=== PATIENT | female | born 1980 | race Caucasian/White ===

== ENCOUNTER → 2017-04-08 | Outpatient (CLI) | payer OTHER | LOC: FIMAGING 13:11 | PROVIDERS: ATTEND Physician Assistant Medical | DX: N83.202 Unspecified ovarian cyst, left side (principal); N93.9 Abnormal uterine and vaginal bleeding, unspecified ==

== ENCOUNTER → 2017-10-15 | Outpatient (CLI) | payer OTHER ==
[~2017-10-15] MED LIST: IOPAMIDOL (ISOVUE-300) 100 ML BTL ONE
== END ==
LOC: FIMAGING 15:47
PROVIDERS: ATTEND Plastic Surgery
DX: S09.8XXA Other specified injuries of head, initial encounter (principal)
CPT/HCPCS: Q9967

== ENCOUNTER → 2018-04-23 | Outpatient (CLI) | payer OTHER | LOC: FIMAGING 13:28 | PROVIDERS: ATTEND Family Medicine | DX: M79.89 Other specified soft tissue disorders (principal) ==

== ENCOUNTER → 2018-10-13 | Outpatient (CLI) | payer OTHER | LOC: FIMAGING 14:54 | PROVIDERS: ATTEND Nurse Practitioner Women's Health | DX: N60.02 Solitary cyst of left breast (principal) ==

== ENCOUNTER 2019-04-05 19:36 | Emergency (ER) | payer OTHER ==
--- NOTE | 2019-04-05 19:44 | EDPHY ---
H & P Stated Complaint: R SIDE JONES X3W, SLURRED SPEECH NOW RESOLVED Time Seen by Provider: 04/05/19 19:44 HPI/ROS: CHIEF COMPLAINT: Right retro-orbital headache, slurred speech, facial numbness HISTORY OF PRESENT ILLNESS: The patient has had a several week history of bitemporal headache. She saw her primary care provider earlier in the week who ordered a sed rate. She presents the emergency department tonight after she developed some slurred speech and right facial numbness. The patient reports the symptoms have resolved with a were concerning. She has no prior history of migraine headaches. The patient denies any history of fall or trauma. The patient does complain of some posterior cervical spine pain predominantly on the right side. She denies any history of chiropractic manipulation or recent fall or trauma. The patient denies fever, cough or congestion. She has no history of a recent illness. REVIEW OF SYSTEMS: A comprehensive 10 point review of systems is otherwise negative aside from elements mentioned in the history of present illness. Source: Patient - Personal History LMP (Females 10-55): 1-7 Days Ago Current Tetanus/Diphtheria Vaccine: Yes - Medical/Surgical History Hx Asthma: No Hx Chronic Respiratory Disease: No Hx Diabetes: No Hx Cardiac Disease: No Hx Renal Disease: No Hx Cirrhosis: No Hx Alcoholism: No Hx HIV/AIDS: No Hx Splenectomy or Spleen Trauma: No Other PMH: anxiety, bilateral inguinal hernia repair - Social History Smoking Status: Never smoked - Physical Exam Exam: General Appearance: Alert, no distress Eyes: Pupils equal and round no pallor or injection ENT, Mouth: Mucous membranes moist Respiratory: There are no retractions, lungs are clear to auscultation Cardiovascular: Regular rate and rhythm Gastrointestinal: Abdomen is soft and nontender, no masses, bowel sounds normal Neurological: A&O, normal motor function, normal sensory exam, normal cranial nerves Skin: Warm and dry, no rashes Musculoskeletal: Neck is supple nontender Extremities: symmetrical, full range of motion Psychiatric: Patient is oriented X 3, there is no agitation Constitutional: Initial Vital Signs Temperature (C) 36.8 C 04/05/19 19:37 Heart Rate 91 04/05/19 19:37 Respiratory Rate 18 04/05/19 19:37 Blood Pressure 130/81 H 04/05/19 19:37 O2 Sat (%) 100 04/05/19 19:37 O2 Delivery Mode Room Air Allergies/Adverse Reactions: No Known Allergies Allergy (Unverified 06/27/11 13:21) Home Medications: Medication Instructions Recorded Xanax 0.25 MG (RX) 05/24/14 Lexapro 08/27/14 Medical Decision Making - Diagnostics Imaging Results: Imaging Impressions Brain MRI 04/05/19 19:55 Impression: 1. Normal MRI of the brain without contrast. If symptoms worsen, additional imaging may be necessary. Findings discussed with José Mercado M.D. at 21:36 hour, 04/05/2019. CT a head and neck: Images reviewed by myself and discussed with radiologist Dr. Ram. Negative for dissection or thrombosis. No aneurysm noted. ED Course/Re-evaluation: Patient presents the ED with a several week history of a bitemporal headache. The patient does describe temporal artery tenderness. I reviewed her past medical records and see that she had a normal sed rate. The patient is noted to be neurologically intact upon arrival. Given her complaints of a 3 week history of headache with new neurologic symptoms and neck pain. MRI of the brain is obtained which demonstrates no evidence of stroke, intracranial hemorrhage, mass or obvious venous obstruction. CT angiography of the head neck is also been ordered which demonstrated no evidence of dissection, aneurysm or thrombosis. Patient will be discharged home with a prescription for prednisone to take for the next 6 days. She is advised to continue to take Tylenol. She is advised to follow up with our on-call neurologist for any ongoing symptoms or other concerns. Re-evaluated the patient personally at 10:30 p.m.. Reviewed the results of her imaging studies and plan for steroid treatment. Patient is discharged home with customary aftercare instructions and return precautions. Differential Diagnosis: Differential diagnosis considered includes STATISTICAL [employer] PROFESSOR mass, meningitis, vertebral dissection, subarachnoid hemorrhage, temporal arteritis - Data Points Laboratory Results: Laboratory Results 04/05/19 20:00 04/05/19 20:00 04/05/19 04/05/19 04/05/19 20:00 20:00 20:00 WBC 8.49 10^3/uL 10^3/uL (3.80-9.50) RBC 4.47 10^6/uL 10^6/uL (4.18-5.33) Hgb 13.6 g/dL g/dL (12.6-16.3) Hct 40.6 % % (38.0-47.0) MCV 90.8 fL fL (81.5-99.8) MCH 30.4 pg pg (27.9-34.1) MCHC 33.5 g/dL g/dL (32.4-36.7) RDW 12.8 % % (11.5-15.2) Plt Count 399 10^3/uL 10^3/uL (150-400) MPV 10.0 fL fL (8.7-11.7) Neut % (Auto) 56.5 % % (39.3-74.2) Lymph % (Auto) 35.3 % % (15.0-45.0) Sandoval % (Auto) 4.8 % % (4.5-13.0) Eos % (Auto) 2.7 % % (0.6-7.6) Baso % (Auto) 0.6 % % (0.3-1.7) Nucleat RBC Rel Count 0.0 % % (0.0-0.2) Absolute Neuts (auto) 4.79 10^3/uL 10^3/uL (1.70-6.50) Absolute Lymphs (auto) 3.00 10^3/uL 10^3/uL (1.00-3.00) Absolute Monos (auto) 0.41 10^3/uL 10^3/uL (0.30-0.80) Absolute Eos (auto) 0.23 10^3/uL 10^3/uL (0.03-0.40) Absolute Basos (auto) 0.05 10^3/uL 10^3/uL (0.02-0.10) Absolute Nucleated RBC 0.00 10^3/uL 10^3/uL (0-0.01) Immature Gran % 0.1 % % (0.0-1.1) Immature Gran # 0.01 10^3/uL 10^3/uL (0.00-0.10) Sodium 136 mEq/L mEq/L (135-145) Potassium 3.9 mEq/L mEq/L (3.5-5.2) Chloride 101 mEq/L mEq/L (97-110) Carbon Dioxide 24 mEq/l mEq/l (22-31) Anion Gap 11 mEq/L mEq/L (6-14) BUN 11 mg/dL mg/dL (7-23) Creatinine 0.7 mg/dL mg/dL (0.6-1.0) Estimated GFR > 60 Glucose 131 mg/dL H mg/dL (70-100) Calcium 10.0 mg/dL mg/dL (8.5-10.4) Beta HCG, Qual NEGATIVE Departure - Departure Disposition: Home, Routine, Self-Care Clinical Impression: Headache Condition: Good Instructions: Acute Headache (ED) Additional Instructions: 1. Please take prednisone as directed for next 7 days. 2. Please schedule a follow-up appointment with a neurologist, Dr. Levine, you have been referred to for any ongoing mild symptoms. 3. Please return to the ED for markedly worsening symptoms, fever, neck stiffness, new neurologic symptoms or other concerns. 4. Your brain MRI demonstrates no acute abnormality. Referrals: Jeff Levine MD [Medical Doctor] - As per Instructions
[2019-04-05 20:11] LABS: PLATELET COUNT 399 10^3/uL (150-400)
[2019-04-05] MEDS ORDERED: IOPAMIDOL (ISOVUE 370) 100 ML BTL IV ONE (20:25)
[2019-04-05 22:03] VITALS: BP 114/70
== END 2019-04-05 22:35 | disposition home or self-care (01) ==
DX: R51 Headache (principal)
CPT/HCPCS: 70551-PN; Q9967